=== PATIENT | female | born 1955 | race Caucasian/White ===

== ENCOUNTER 2024-05-05 17:49 | Emergency (ER) | payer MEDICARE, BC ==
[~2024-05-05] VITALS: Ht 157.5 cm; Wt 77.1 kg
[2024-05-05] MEDS ORDERED: LIDOCAINE 1% INJ 50 ML MDV IJ ONE (19:11)
[2024-05-05] MEDS ORDERED: HYDROCODONE/APAP 5/325MG TABLET ONE (19:12)
[2024-05-05] MEDS ORDERED: TDAP [DIPH/PERTUSSIS/TET] 0.5 ML VIAL IM ONE (19:12)
[2024-05-05] MEDS ORDERED: LIDOCAINE 0.5%-EPI 1:200,000 50 ML VIAL ONE (19:13)
[2024-05-05] MEDS ORDERED: LIDOCAINE 1%-EPI 1:100,000 20 ML VIAL ONE (19:17)
[2024-05-05] MEDS: LIDOCAINE 1%-EPI 1:100,000 20 ML VIAL TP ONE (19:18)
[2024-05-05] MEDS: TDAP [DIPH/PERTUSSIS/TET] 0.5 ML VIAL IM ONE (19:22)
[2024-05-05] MEDS: HYDROCODONE/APAP 5/325MG TABLET PO ONE (19:24)
[2024-05-05] MEDS ORDERED: IBUP-1490 PO (20:53)
[2024-05-05] MEDS ORDERED: TRAM50TA2 PO (20:53)
[2024-05-05] MEDS ORDERED: ACET-2605 PO (20:53)
[2024-05-05 21:06] VITALS: BP 127/83; TEMP 98.6; O2SAT 97
[2024-05-06] MEDS ORDERED: CEPH500C2 PO (14:11)
== END 2024-05-05 21:07 | disposition home or self-care (01) ==
LOC: ER 18:29
DX: S01.81XA Laceration without foreign body of other part of head, initial encounter (principal); I10 Essential (primary) hypertension; Z79.1 Long term (current) use of non-steroidal anti-inflammatories (NSAID); Z98.890 Other specified postprocedural states; Z79.899 Other long term (current) drug therapy; W18.39XA Other fall on same level, initial encounter; Y93.89 Activity, other specified; Y92.89 Other specified places as the place of occurrence of the external cause; Y99.8 Other external cause status
CPT/HCPCS: 12044; 70486; 90471; 90715; 99285; A6403; J3490